=== PATIENT | male | born 1975 | race Hispanic/Latino ===

== ENCOUNTER 2022-02-28 23:12 | Emergency (ER) | payer OTHER ==
[~2022-02-28 23:12] MED LIST: Norepinephrine 4 MG/4 ML VIAL ONE
[2022-02-28] MEDS ORDERED: Ibuprofen 800 MG TAB ONE (23:24)
[2022-02-28] MEDS ORDERED: Sodium Chloride 0.9% 1,000 ML ONE (23:55)
[2022-03-01] MEDS ORDERED: Sodium Chloride 0.9% 1,000 ML ONE ×3 (00:03→01:41)
[2022-03-01 00:19] LABS: Band 40 % (5-11); Hemoglobin 13.4 g/dL (14.0-18.0); Large Platelets SLIGHT; Lymphocytes 7 % (21-51); MDiff Complete? YES; Mean Corpuscular HGB CONC 35.7 g/dL (32.0-36.0); Mean Corpuscular Hemoglobin 30.3 pg (27.0-31.0); Mean Corpuscular Volume 84.9 fl (78.0-98.0); Monocytes 1 % (0-10); Neutrophil 52 % (42-75); Platelet Count 93 10x3/uL (130-400); Platelet Morphology Comment Appears Decreased; RBC Distribution Width 12.2 % (11.5-14.5); RBC Morphology Normal; Red Blood Cell (RBC) Count 4.42 mill/uL (4.70-6.10); White Blood Cell (WBC) Count 9.4 10x3/uL (4.8-10.8)
[2022-03-01 00:23] LABS: ALT (SGPT) 464 U/L (8-55); AST (SGOT) 142 U/L (5-34); Albumin 3.7 g/dL (3.5-5.0); Alkaline Phosphatase 193 U/L (40-110); Anion Gap 18 mmol/L (10-20); BUN (Urea Nitrogen) 27 mg/dL (8.9-20.6); Bilirubin, Total 31.7 mg/dL (0.2-1.2); CK (CPK) 590 U/L (30-200); Calc. Creatinine Clearance 0 mL/min (70-130); Carbon Dioxide 18 mmol/L (22-29); Chloride 93 mmol/L (98-107); Estimated GFR 35; Globulin 3.5 g/dL (2.4-3.5); Glucose 135 mg/dL (70-105); Protein, Total 7.2 g/dL (6.0-8.3); Sodium 126 mmol/L (136-145)
[2022-03-01 00:30] LABS: Potassium 2.6 mmol/L (3.5-5.1)
[2022-03-01] MEDS ORDERED: Lidocaine 1% PF 5 ML VIAL ONE (00:46)
[2022-03-01] MEDS ORDERED: Potassium Chloride 20 MEQ TAB ONE (00:53)
[2022-03-01] MEDS ORDERED: Cefepime 2 GM VIAL ONE (00:54)
[2022-03-01] MEDS ORDERED: Sodium Chloride 0.9% 100 ML ONE (00:55)
[2022-03-01] MEDS ORDERED: Norepinephrine 4 MG/4 ML VIAL ONE ×2 (01:21)
[2022-03-01] MEDS ORDERED: Sodium Chloride 0.9% 250 ML 250 ML ONE ×2 (01:21→01:40)
[2022-03-01] MEDS ORDERED: Vancomycin 1 GM VIAL ONE (01:40)
[2022-03-01 02:30] LABS: INR-International Normal Ratio 1.1; PTT 33.9 sec (22.9-36.1); Prothrombin Time 14.8 sec (12.0-14.7)
== END 2022-03-01 02:48 | disposition short-term general hospital (02) ==
LOC: MADERS 23:12
DX: A41.89 Other specified sepsis (principal); U07.1 COVID-19; R65.21 Severe sepsis with septic shock; N17.9 Acute kidney failure, unspecified; D69.6 Thrombocytopenia, unspecified; K75.9 Inflammatory liver disease, unspecified; E87.6 Hypokalemia; E87.1 Hypo-osmolality and hyponatremia
CPT/HCPCS: 36556; 71045; 74176; 80053; 82550; 83605; 84484; 85025; 85610; 85730; 87040; 87077; 87149; 87804; 93005; 96365; 96367; 96368; J0692; J3370; J3490; J7050; J7070